=== PATIENT | male | born 1990 | race Caucasian/White ===

== ENCOUNTER 2021-02-20 22:33 | Emergency (ER) | payer OTHER ==
[~2021-02-20] VITALS: Ht 180.3 cm; Wt 56.7 kg
[2021-02-20 23:07] VITALS: BP 118/69
[2021-02-21] MEDS ORDERED: IBUP-1957 PO (00:30)
--- NOTE | 2021-02-21 00:38 | NUR ---
Patient discharged to home in stable condition. Written and verbal after care instructions given. Patient verbalizes understanding of instruction.
== END 2021-02-21 00:40 | disposition home or self-care (01) ==
LOC: ER 22:45
DX: S60.151A Contusion of right little finger with damage to nail, initial encounter (principal); Z79.899 Other long term (current) drug therapy; X58.XXXA Exposure to other specified factors, initial encounter; Y93.89 Activity, other specified; Y92.89 Other specified places as the place of occurrence of the external cause; Y99.8 Other external cause status
CPT/HCPCS: 73130-TC

== ENCOUNTER 2022-03-31 11:58 | Emergency (ER) | payer OTHER ==
[~2022-03-31] VITALS: Ht 180.3 cm; Wt 59.0 kg
[~2022-03-31 11:58] MED LIST: IBUP-1957 PO
--- NOTE | 2022-03-31 12:15 | NUR ---
bib c/o worsening R side rib area/flank pain x 3 weeks, pain taking deep breaths. awaitin gmd orders.
--- NOTE | 2022-03-31 12:39 | NUR ---
ULTRASOUND AT BEDSIDE
[2022-03-31] MEDS ORDERED: IBUP-1955 PO (12:55)
[2022-03-31] MEDS ORDERED: CYCL10TA9 PO (12:55)
[2022-03-31 13:00] VITALS: BP 131/85
--- NOTE | 2022-03-31 13:00 | NUR ---
Patient discharged to home in stable condition. Written and verbal after care instructions given. Patient verbalizes understanding of instruction.
== END 2022-03-31 13:01 | disposition home or self-care (01) ==
LOC: ER 11:58
DX: R07.81 Pleurodynia (principal); Z79.1 Long term (current) use of non-steroidal anti-inflammatories (NSAID)